=== PATIENT | male | born 1960 | race Caucasian/White ===

== ENCOUNTER → 2017-07-04 | Outpatient (REF) | payer BC | LOC: M LAB REF 12:35 | DX: R19.7 Diarrhea, unspecified (principal); K62.5 Hemorrhage of anus and rectum | CPT/HCPCS: 87507 ==

== ENCOUNTER 2017-07-06 13:08 | Day surgery (SDC) | payer BC ==
[2017-07-06] MEDS: NS 1,000 ML IV (13:15)
[2017-07-06] MEDS ORDERED: PROPOFOL 200 MG/20 ML VIAL As Ordered ×3 (14:21→14:39)
[2017-07-06] MEDS ORDERED: LIDOCAINE 2% INJ 100 MG/5 ML SDV (FOR ANES.) As Ordered (14:21)
[2017-07-06 15:52] LABS: HEMATOCRIT 38.5 % (42.0-52.0); MEAN CORPUSCULAR HEMOGLOBIN 29.8 pg (27.0-33.0); MEAN CORPUSCULAR HGB CONC 33.8 g/dl (32.0-36.5); MEAN CORPUSCULAR VOLUME 88.3 fl (80.0-96.0); PLATELET COUNT, AUTOMATED 328 10^3/uL (150-450); RED BLOOD COUNT 4.36 10^6/uL (4.30-6.10); RED CELL DISTRIBUTION WIDTH 12.4 % (11.5-14.5); WHITE BLOOD COUNT 4.4 10^3/uL (4.0-10.0)
== END 2017-07-06 15:38 | disposition home or self-care (01) ==
LOC: M OPP 13:08
DX: R19.7 Diarrhea, unspecified (principal); R19.4 Change in bowel habit; K62.5 Hemorrhage of anus and rectum; K51.518 Left sided colitis with other complication; K63.89 Other specified diseases of intestine; K62.89 Other specified diseases of anus and rectum; I10 Essential (primary) hypertension; E78.5 Hyperlipidemia, unspecified; Z86.73 Personal history of transient ischemic attack (TIA), and cerebral infarction without residual deficits; Z88.0 Allergy status to penicillin; Z79.82 Long term (current) use of aspirin; Z79.899 Other long term (current) drug therapy; Z80.8 Family history of malignant neoplasm of other organs or systems
CPT/HCPCS: 45380

== ENCOUNTER → 2017-08-01 | Outpatient (CLI) | payer BC ==
[2017-08-01 10:27] LABS: BASO % 0.3 % (0.0-1.0); EOS # 0.1 10^3/uL (0.0-0.50); HEMATOCRIT 36.9 % (42.0-52.0); HEMOGLOBIN 12.1 g/dl (14.0-18.0); IMMATURE GRANULOCYTE % 0.3 % (0-3.0); MEAN CORPUSCULAR HEMOGLOBIN 29.7 pg (27.0-33.0); MEAN CORPUSCULAR HGB CONC 32.8 g/dl (32.0-36.5); MEAN CORPUSCULAR VOLUME 90.7 fl (80.0-96.0); MONO # 0.7 10^3/uL (0.0-0.8); MONO % 8.8 % (0.0-5.0); NEUTROPHILS # 5.9 10^3/uL (1.8-7.7); NEUTROPHILS % 76.6 % (36.0-66.0); PLATELET COUNT, AUTOMATED 315 10^3/uL (150-450); RED BLOOD COUNT 4.07 10^6/uL (4.30-6.10); RED CELL DISTRIBUTION WIDTH 13.8 % (11.5-14.5); WHITE BLOOD COUNT 7.7 10^3/uL (4.0-10.0)
[2017-08-01 11:30] LABS: BANDS 4 % (< 11); EOSINOPHILS 2 % (0-5); LYMPHOCYTES 12 % (16-52); MONOCYTES 10 % (0-8); NEUTROPHILS 72 % (35-75); PLATELET ESTIMATE NORMAL (NORMAL)
== END ==
LOC: M LAB 09:47
DX: R19.7 Diarrhea, unspecified (principal); K62.5 Hemorrhage of anus and rectum; R10.9 Unspecified abdominal pain
CPT/HCPCS: 85025

== ENCOUNTER → 2017-09-06 | Outpatient (REF) | payer BC ==
[2017-09-06 17:50] LABS: VITAMIN B12 LEVEL 710 PG/ML (247-911)
[2017-09-09 00:06] LABS: Lyme Disease IgG/IgM Antibodie <0.91 ISR (0.00-0.90); Lyme Disease IgM Ab Quantitati <0.80 index (0.00-0.79)
== END ==
LOC: M LAB REF 16:39
DX: R53.83 Other fatigue (principal)
CPT/HCPCS: 82607

== ENCOUNTER 2017-09-27 18:59 | Emergency (ER) | payer BC ==
[2017-09-27] MEDS: AZITHROMYCIN 250 MG TAB PO (21:20)
[2017-09-27] MEDS: IPRATROPIUM 0.5MG/ALBUTEROL 2.5MG INH SOL UD 3ML (DUONEB)(J7620) NEB (21:20)
== END 2017-09-27 22:05 | disposition home or self-care (01) ==
LOC: M ED 18:59
DX: J18.1 Lobar pneumonia, unspecified organism (principal); I10 Essential (primary) hypertension; Z86.73 Personal history of transient ischemic attack (TIA), and cerebral infarction without residual deficits; Z79.82 Long term (current) use of aspirin; Z79.01 Long term (current) use of anticoagulants; Z88.0 Allergy status to penicillin; Z79.899 Other long term (current) drug therapy; Z87.442 Personal history of urinary calculi; Z87.19 Personal history of other diseases of the digestive system
CPT/HCPCS: 71046

== ENCOUNTER 2017-09-29 13:11 | Inpatient (IN) | payer BC ==
[2017-09-29] MEDS: ALBUTEROL SULFATE 2.5 MG/0.5 ML INH NEB SOLN NEB ×3 (13:56→17:54)
[2017-09-29] MEDS: methylPREDNISolone INJ 125 MG/2 ML VIAL (J2930) IV ×2 (14:25→22:14)
[2017-09-29] MEDS: NS 1,000 ML IV (14:25)
[2017-09-29 14:29] LABS: BASO % 0.4 % (0.0-1.0); EOS # 0.2 10^3/uL (0.0-0.50); EOS % 2.6 % (0.0-3.0); HEMATOCRIT 31.8 % (42.0-52.0); IMMATURE GRANULOCYTE % 0.3 % (0-3.0); LYMPH % 26.5 % (24.0-44.0); MEAN CORPUSCULAR HEMOGLOBIN 26.2 pg (27.0-33.0); MEAN CORPUSCULAR HGB CONC 31.4 g/dl (32.0-36.5); MEAN CORPUSCULAR VOLUME 83.2 fl (80.0-96.0); MONO % 13.6 % (0.0-5.0); NEUTROPHILS # 4.2 10^3/uL (1.8-7.7); NEUTROPHILS % 56.6 % (36.0-66.0); PLATELET COUNT, AUTOMATED 487 10^3/uL (150-450); RED BLOOD COUNT 3.82 10^6/uL (4.30-6.10); RED CELL DISTRIBUTION WIDTH 13.2 % (11.5-14.5); WHITE BLOOD COUNT 7.4 10^3/uL (4.0-10.0)
[2017-09-29 14:56] LABS: INR 1.02; PROTHROMBIN TIME 13.5 SECONDS (12.4-14.5)
[2017-09-29 14:57] LABS: LACTIC ACID SEPSIS PROTOCOL 1.5 MMOL/L (0.4-2.0)
[2017-09-29 14:57] LABS: ALBUMIN 2.7 GM/DL (3.2-5.2); ALBUMIN/GLOBULIN RATIO 0.49 (1.00-1.93); ALKALINE PHOSPHATASE 97 U/L (45-117); ALT/SGPT 17 U/L (12-78); ANION GAP 7 MEQ/L (8-16); AST/SGOT 13 U/L (7-37); BILIRUBIN,DIRECT 0.2 MG/DL (0.0-0.2); BILIRUBIN,TOTAL 0.6 MG/DL (0.2-1.0); BLOOD UREA NITROGEN 11 MG/DL (7-18); CALCIUM LEVEL 8.3 MG/DL (8.5-10.1); CARBON DIOXIDE LEVEL 25 MEQ/L (21-32); CHLORIDE LEVEL 105 MEQ/L (98-107); CPK CREATINE PHOSPHOKINASE 44 U/L (39-308); CREATININE FOR GFR 0.97 MG/DL (0.70-1.30); GLOMERULAR FILTRATION RATE > 60.0 (>56); GLUCOSE, FASTING 99 MG/DL (70-100); POTASSIUM SERUM 3.8 MEQ/L (3.5-5.1); SODIUM LEVEL 137 MEQ/L (136-145); THYROXINE (T4) 9.6 UG/DL (4.5-12.0); TOTAL PROTEIN 8.2 GM/DL (6.4-8.2); TROPONIN I < 0.02 NG/ML (< 0.10)
[2017-09-29 15:03] LABS: CK-MB VALUE MASS < 1.0 NG/ML (<3.6); MB/CK RELATIVE INDEX 2.27 (< OR =4); NT-PRO BNP 91 PG/ML (<125)
[2017-09-29] MEDS: LevoFLOXacin IV 750 MG in APPROPRIATE DILUENT 1 EA IV (15:10)
[2017-09-29 15:54] LABS: ABG BASE EXCESS -3.7 (-2.0-2.0); ABG HCO3 19.5 MEQ/L (22.0-26.0); ABG PARTIAL PRESSURE CO2 28.9 mmHg (35.0-45.0); ABG PARTIAL PRESSURE O2 63.9 mmHg (75.0-100.0); ABG STANDARD HCO3 21.3 MEQ/L (22.0-26.0); ABG TOTAL CO2 20.4 MEQ/L (22.0-29.0); ABG pH (ARTERIAL) 7.447 UNITS (7.350-7.450)
[2017-09-29] MEDS ORDERED: ISOVUE-370 76% 100ML VIAL (Q9967) As Ordered (17:43)
[2017-09-29] MEDS ORDERED: IPRATROPIUM 0.5MG/ALBUTEROL 2.5MG INH SOL UD 3ML (DUONEB)(J7620) NEB (17:45)
[2017-09-29] MEDS ORDERED: ONDANSETRON 4MG/2ML VIAL (J2405) IV (18:00)
[2017-09-29] MEDS ORDERED: ACETAMINOPHEN TAB 650MG DOSE (2X325MG) PO (18:00)
[2017-09-29] MEDS: IPRATROPIUM 0.5MG/ALBUTEROL 2.5MG INH SOL UD 3ML (DUONEB)(J7620) NEB (20:00)
[2017-09-29 20:14] LABS: CK-MB VALUE MASS < 1.0 NG/ML (<3.6); CPK CREATINE PHOSPHOKINASE 42 U/L (39-308); MB/CK RELATIVE INDEX 2.38 (< OR =4); TROPONIN I < 0.02 NG/ML (< 0.10)
[2017-09-29] MEDS: FUROSEMIDE 20 MG/2 ML VIAL (J1940) IV (20:56)
[2017-09-29] MEDS: ASPIRIN 81 MG ENTERIC TAB PO (20:56)
[2017-09-29] MEDS: GABAPENTIN 300 MG CAP PO (20:56)
[2017-09-29] MEDS: SENOKOT S TAB PO (20:57)
[2017-09-29] MEDS: ADVAIR HFA 230/21MCG INHALER INH (21:11)
[2017-09-29] MEDS: HEPARIN SOD (PORCINE) 5000 UNITS/ML VIAL SC (22:14)
[2017-09-29] MEDS: NS 500 ML IV (23:15)
[2017-09-30] MEDS: IPRATROPIUM 0.5MG/ALBUTEROL 2.5MG INH SOL UD 3ML (DUONEB)(J7620) NEB ×4 (02:55→20:00)
[2017-09-30] MEDS: methylPREDNISolone INJ 125 MG/2 ML VIAL (J2930) IV (05:26)
[2017-09-30 05:32] LABS: HEMATOCRIT 27.3 % (42.0-52.0); HEMOGLOBIN 8.6 g/dl (13.5-17.5); MEAN CORPUSCULAR HEMOGLOBIN 26.1 pg (27.0-33.0); MEAN CORPUSCULAR HGB CONC 31.5 g/dl (32.0-36.5); PLATELET COUNT, AUTOMATED 410 10^3/uL (150-450); RED BLOOD COUNT 3.29 10^6/uL (4.30-6.10); WHITE BLOOD COUNT 3.8 10^3/uL (4.0-10.0)
[2017-09-30 05:55] LABS: ANION GAP 4 MEQ/L (8-16); BLOOD UREA NITROGEN 12 MG/DL (7-18); CALCIUM LEVEL 7.9 MG/DL (8.5-10.1); CARBON DIOXIDE LEVEL 24 MEQ/L (21-32); CHLORIDE LEVEL 113 MEQ/L (98-107); CK-MB VALUE MASS < 1.0 NG/ML (<3.6); CPK CREATINE PHOSPHOKINASE 42 U/L (39-308); GLOMERULAR FILTRATION RATE > 60.0 (>56); GLUCOSE, FASTING 163 MG/DL (70-100); MAGNESIUM LEVEL 2.4 MG/DL (1.8-2.4); MB/CK RELATIVE INDEX 2.38 (< OR =4); POTASSIUM SERUM 4.4 MEQ/L (3.5-5.1); SODIUM LEVEL 141 MEQ/L (136-145); TROPONIN I < 0.02 NG/ML (< 0.10)
[2017-09-30] MEDS: ADVAIR HFA 230/21MCG INHALER INH ×2 (08:19→22:14)
[2017-09-30] MEDS: TIOTROPIUM INHALER/CAPSULE (SPIRIVA) INH (08:19)
[2017-09-30] MEDS: SENOKOT S TAB PO ×2 (09:00→21:00)
[2017-09-30] MEDS: ATORVASTATIN 20 MG TAB PO (09:11)
[2017-09-30] MEDS: amLODIPine 5 MG TAB PO (09:12)
[2017-09-30] MEDS: CLOPIDOGREL 75 MG TAB PO (09:12)
[2017-09-30] MEDS: ASPIRIN 81 MG ENTERIC TAB PO ×2 (09:12→22:30)
[2017-09-30] MEDS: FUROSEMIDE 20 MG/2 ML VIAL (J1940) IV ×2 (09:12→17:07)
[2017-09-30] MEDS: HEPARIN SOD (PORCINE) 5000 UNITS/ML VIAL SC ×2 (09:13→22:30)
[2017-09-30] MEDS: methylPREDNISolone INJ 40 MG/1 ML VIAL (J2920) IV ×2 (14:09→22:30)
[2017-09-30] MEDS: MOXIFLOXACIN HCL 400 MG in APPROPRIATE DILUENT 1 EA IV (17:07)
[2017-09-30] MEDS: GABAPENTIN 300 MG CAP PO (21:00)
[2017-10-01] MEDS: GABAPENTIN 300 MG CAP PO ×2 (00:31→20:19)
[2017-10-01] MEDS: IPRATROPIUM 0.5MG/ALBUTEROL 2.5MG INH SOL UD 3ML (DUONEB)(J7620) NEB ×4 (01:34→20:00)
[2017-10-01 06:02] LABS: HEMATOCRIT 28.4 % (42.0-52.0); MEAN CORPUSCULAR HGB CONC 31.7 g/dl (32.0-36.5); MEAN CORPUSCULAR VOLUME 82.1 fl (80.0-96.0); PLATELET COUNT, AUTOMATED 568 10^3/uL (150-450); RED BLOOD COUNT 3.46 10^6/uL (4.30-6.10); RED CELL DISTRIBUTION WIDTH 13.2 % (11.5-14.5); WHITE BLOOD COUNT 17.4 10^3/uL (4.0-10.0)
[2017-10-01] MEDS: methylPREDNISolone INJ 40 MG/1 ML VIAL (J2920) IV (06:09)
[2017-10-01 06:11] LABS: ANION GAP 8 MEQ/L (8-16); BLOOD UREA NITROGEN 19 MG/DL (7-18); C REACTIVE PROTEIN QUANTITATIV 7.89 MG/DL (0.00-0.30); CALCIUM LEVEL 8.4 MG/DL (8.5-10.1); CARBON DIOXIDE LEVEL 24 MEQ/L (21-32); CHLORIDE LEVEL 110 MEQ/L (98-107); CREATININE FOR GFR 0.96 MG/DL (0.70-1.30); GLOMERULAR FILTRATION RATE > 60.0 (>56); GLUCOSE, FASTING 151 MG/DL (70-100); MAGNESIUM LEVEL 2.4 MG/DL (1.8-2.4); POTASSIUM SERUM 3.9 MEQ/L (3.5-5.1); SODIUM LEVEL 142 MEQ/L (136-145)
[2017-10-01] MEDS: TIOTROPIUM INHALER/CAPSULE (SPIRIVA) INH (07:27)
[2017-10-01] MEDS: ADVAIR HFA 230/21MCG INHALER INH ×2 (07:27→20:15)
[2017-10-01] MEDS: SENOKOT S TAB PO ×2 (09:00→20:20)
[2017-10-01] MEDS: ASPIRIN 81 MG ENTERIC TAB PO ×2 (09:48→20:20)
[2017-10-01] MEDS: ATORVASTATIN 20 MG TAB PO (09:48)
[2017-10-01] MEDS: CLOPIDOGREL 75 MG TAB PO (09:48)
[2017-10-01] MEDS: amLODIPine 5 MG TAB PO (09:48)
[2017-10-01] MEDS: FUROSEMIDE 40 MG TAB PO (09:48)
[2017-10-01] MEDS: predniSONE 20 MG TAB PO (09:49)
[2017-10-01] MEDS: HEPARIN SOD (PORCINE) 5000 UNITS/ML VIAL SC ×2 (09:49→20:20)
[2017-10-01] MEDS: MOXIFLOXACIN HCL 400 MG in APPROPRIATE DILUENT 1 EA IV (17:30)
[2017-10-02] MEDS: IPRATROPIUM 0.5MG/ALBUTEROL 2.5MG INH SOL UD 3ML (DUONEB)(J7620) NEB ×2 (02:54→07:28)
[2017-10-02 06:41] LABS: HEMATOCRIT 26.4 % (42.0-52.0); HEMOGLOBIN 8.5 g/dl (13.5-17.5); MEAN CORPUSCULAR HEMOGLOBIN 26.5 pg (27.0-33.0); MEAN CORPUSCULAR HGB CONC 32.2 g/dl (32.0-36.5); MEAN CORPUSCULAR VOLUME 82.2 fl (80.0-96.0); PLATELET COUNT, AUTOMATED 488 10^3/uL (150-450); RED BLOOD COUNT 3.21 10^6/uL (4.30-6.10); RED CELL DISTRIBUTION WIDTH 13.5 % (11.5-14.5); WHITE BLOOD COUNT 10.9 10^3/uL (4.0-10.0)
[2017-10-02 07:01] LABS: ANION GAP 4 MEQ/L (8-16); BLOOD UREA NITROGEN 17 MG/DL (7-18); C REACTIVE PROTEIN QUANTITATIV 3.67 MG/DL (0.00-0.30); CALCIUM LEVEL 8.1 MG/DL (8.5-10.1); CARBON DIOXIDE LEVEL 28 MEQ/L (21-32); CHLORIDE LEVEL 112 MEQ/L (98-107); CREATININE FOR GFR 0.87 MG/DL (0.70-1.30); GLOMERULAR FILTRATION RATE > 60.0 (>56); GLUCOSE, FASTING 124 MG/DL (70-100); MAGNESIUM LEVEL 2.2 MG/DL (1.8-2.4); POTASSIUM SERUM 3.6 MEQ/L (3.5-5.1); SODIUM LEVEL 144 MEQ/L (136-145)
[2017-10-02] MEDS: ADVAIR HFA 230/21MCG INHALER INH (07:26)
[2017-10-02] MEDS: TIOTROPIUM INHALER/CAPSULE (SPIRIVA) INH (07:27)
[2017-10-02] MEDS: HEPARIN SOD (PORCINE) 5000 UNITS/ML VIAL SC (08:36)
[2017-10-02] MEDS: amLODIPine 5 MG TAB PO (08:37)
[2017-10-02] MEDS: SENOKOT S TAB PO (08:37)
[2017-10-02] MEDS: ATORVASTATIN 20 MG TAB PO (08:37)
[2017-10-02] MEDS: predniSONE 20 MG TAB PO (08:37)
[2017-10-02] MEDS: ASPIRIN 81 MG ENTERIC TAB PO (08:37)
[2017-10-02] MEDS: CLOPIDOGREL 75 MG TAB PO (08:37)
[2017-10-02] MEDS: MOXIFLOXACIN HCL 400 MG in APPROPRIATE DILUENT 1 EA IV (12:29)
== END 2017-10-02 14:35 | disposition home or self-care (01) | DRG 139 ==
LOC: M PCU 09-30 00:09 → M ED 13:11 → M ED INP 17:50 → M MS5PR 09-30 18:37
DX: J18.9 Pneumonia, unspecified organism (principal); J81.1 Chronic pulmonary edema; I27.20 Pulmonary hypertension, unspecified; J44.0 Chronic obstructive pulmonary disease with (acute) lower respiratory infection; J44.1 Chronic obstructive pulmonary disease with (acute) exacerbation; K51.90 Ulcerative colitis, unspecified, without complications; I10 Essential (primary) hypertension; D50.0 Iron deficiency anemia secondary to blood loss (chronic); J98.01 Acute bronchospasm; Z88.0 Allergy status to penicillin; Z86.73 Personal history of transient ischemic attack (TIA), and cerebral infarction without residual deficits; Z79.82 Long term (current) use of aspirin; Z79.02 Long term (current) use of antithrombotics/antiplatelets; Z79.899 Other long term (current) drug therapy

== ENCOUNTER → 2017-10-05 | Outpatient (REF) | payer BC ==
[2017-10-05 12:56] LABS: IRON (FE) 17 UG/DL (65-175); PERCENT SATURATION 5.7 % (19.7-50.0); TOTAL IRON BINDING CAPACITY 296 UG/DL (250-450)
[2017-10-05 13:01] LABS: FOLATE 11.9 NG/ML; VITAMIN B12 LEVEL 814 PG/ML
[2017-10-07 00:08] LABS: ALPHA 1 ANTITRYPSIN 167 mg/dL (90-200)
== END ==
LOC: M LAB REF 12:13
DX: D64.9 Anemia, unspecified (principal); J44.9 Chronic obstructive pulmonary disease, unspecified
CPT/HCPCS: 82746

== ENCOUNTER → 2017-10-21 | Outpatient (CLI) | payer BC | LOC: M RAD 16:14 | DX: M79.661 Pain in right lower leg (principal); M79.662 Pain in left lower leg; M79.89 Other specified soft tissue disorders | CPT/HCPCS: 93970 ==

== ENCOUNTER → 2017-11-03 | Outpatient (CLI) | payer BC | LOC: M CARPUL 16:56 | DX: R06.00 Dyspnea, unspecified (principal) | CPT/HCPCS: 94729 ==

== ENCOUNTER → 2017-12-01 | Outpatient (REF) | payer BC ==
[2017-12-01 14:29] LABS: C REACTIVE PROTEIN QUANTITATIV 0.54 MG/DL (0.00-0.30)
[2017-12-08 14:41] LABS: ANCA-ATYPICAL <1:20 titer (Neg:<1:20); ANTI-SACCHAROMYCES CEREV. IgA <20.0 Units (0.0-24.9); ANTI-SACCHAROMYCES CEREV. IgG 26.4 Units (0.0-24.9); CYTOPLASMIC NEUTROP AB ANCA-C <1:20 titer (Neg:<1:20); PERINUCLEAR AB ANCA-P <1:20 titer (Neg:<1:20)
== END ==
LOC: M LAB REF 13:21
DX: R10.84 Generalized abdominal pain (principal); R19.7 Diarrhea, unspecified
CPT/HCPCS: 86256

== ENCOUNTER → 2017-12-06 | Outpatient (REF) | payer BC ==
[2017-12-15 00:09] LABS: CALPROTECTIN STOOL 1985 ug/g (0-120)
== END ==
LOC: M LAB REF 09:41
DX: K51.50 Left sided colitis without complications (principal); R19.7 Diarrhea, unspecified; R10.84 Generalized abdominal pain
CPT/HCPCS: 83993

== ENCOUNTER → 2017-12-23 | Outpatient (REF) | payer BC ==
[2017-12-23 13:50] LABS: RETIC HEMOGLOBIN EQUIVALENT 32.3 pg (24-36); RETICULOCYTE % 3.4 % (0.5-1.5)
[2017-12-23 14:11] LABS: IRON (FE) 16 UG/DL (65-175); PERCENT SATURATION 5.6 % (19.7-50.0); TOTAL IRON BINDING CAPACITY 285 UG/DL (250-450)
== END ==
LOC: M LAB REF 13:26
DX: D64.9 Anemia, unspecified (principal)
CPT/HCPCS: 83550

== ENCOUNTER → 2018-01-10 | Outpatient (CLI) | payer BC | LOC: M RAD 11:48 | DX: R10.84 Generalized abdominal pain (principal) | CPT/HCPCS: 74018 ==

== ENCOUNTER → 2018-01-10 | Outpatient (REF) | payer BC ==
[2018-01-10 17:12] LABS: LACTIC ACID SEPSIS PROTOCOL 1.3 MMOL/L (0.4-2.0)
[2018-01-16 08:36] LABS: ANSER ADA #3170 SEE SEPARATE REPORT
== END ==
LOC: M LAB REF 16:50
DX: K51.50 Left sided colitis without complications (principal)
CPT/HCPCS: 84999

== ENCOUNTER 2018-01-14 12:15 | Inpatient (IN) | payer BC ==
[2018-01-14] MEDS: ONDANSETRON 4MG/2ML VIAL (J2405) IV (12:47)
[2018-01-14] MEDS: NS 1,000 ML IV ×2 (12:47→21:58)
[2018-01-14] MEDS: MORPHINE 4 MG/ML 1ML VIAL/SYRINGE (J2270) IV (12:47)
[2018-01-14] MEDS: methylPREDNISolone INJ 125 MG/2 ML VIAL (J2930) IV ×2 (12:47→21:57)
[2018-01-14 12:52] LABS: HEMATOCRIT 32.1 % (42.0-52.0); HEMOGLOBIN 9.9 g/dl (13.5-17.5); MEAN CORPUSCULAR HEMOGLOBIN 26.3 pg (27.0-33.0); MEAN CORPUSCULAR HGB CONC 30.8 g/dl (32.0-36.5); MEAN CORPUSCULAR VOLUME 85.4 fl (80.0-96.0); PLATELET COUNT, AUTOMATED 537 10^3/uL (150-450); RED BLOOD COUNT 3.76 10^6/uL (4.30-6.10); WHITE BLOOD COUNT 7.3 10^3/uL (4.0-10.0)
[2018-01-14] MEDS: GASTROGRAFIN SOLUTION 30ML PO ×2 (12:54→12:55)
[2018-01-14 12:58] LABS: POSITIVE MORPH POS FLAG
[2018-01-14 12:59] LABS: ADD MANUAL DIFFER YES; DIFF SLIDE NUMBER 127
[2018-01-14 13:04] LABS: INR 1.02; PROTHROMBIN TIME 13.6 SECONDS (12.1-14.4)
[2018-01-14 13:14] LABS: ERYTHROCYTE SEDIMENTATION RATE 67 mm/hr (0-20)
[2018-01-14 13:15] LABS: LACTIC ACID SEPSIS PROTOCOL 1.2 MMOL/L (0.4-2.0)
[2018-01-14 13:20] LABS: ALBUMIN 2.1 GM/DL (3.2-5.2); ALBUMIN/GLOBULIN RATIO 0.51 (1.00-1.93); ALKALINE PHOSPHATASE 73 U/L (45-117); ALT/SGPT 14 U/L (12-78); ANION GAP 15 MEQ/L (8-16); AST/SGOT 8 U/L (7-37); BILIRUBIN,DIRECT < 0.1 MG/DL (0.0-0.2); BILIRUBIN,TOTAL 0.3 MG/DL (0.2-1.0); BLOOD UREA NITROGEN 19 MG/DL (7-18); CALCIUM LEVEL 8.2 MG/DL (8.5-10.1); CARBON DIOXIDE LEVEL 18 MEQ/L (21-32); CHLORIDE LEVEL 104 MEQ/L (98-107); CREATININE FOR GFR 1.05 MG/DL (0.70-1.30); GLOMERULAR FILTRATION RATE > 60.0 (>56); GLUCOSE, FASTING 72 MG/DL (70-100); LIPASE 70 U/L (73-393); POTASSIUM SERUM 4.2 MEQ/L (3.5-5.1); SODIUM LEVEL 137 MEQ/L (136-145); TOTAL PROTEIN 6.2 GM/DL (6.4-8.2)
[2018-01-14 13:36] LABS: BANDS 7 % (< 11); EOSINOPHILS 1 % (0-5); LYMPHOCYTES 24 % (16-52); MONOCYTES 4 % (0-8); NEUTROPHILS 64 % (35-75)
[2018-01-14 13:37] LABS: ANISOCYTOSIS 1+; PLATELET ESTIMATE INCREASED (NORMAL)
[2018-01-14] MEDS ORDERED: ISOVUE-370 76% 100ML VIAL (Q9967) As Ordered (14:18)
[2018-01-14] MEDS ORDERED: ONDANSETRON 4MG/2ML VIAL (J2405) IV (16:30)
[2018-01-14] MEDS ORDERED: ONDANSETRON 4 MG TAB (S0181) PO (16:30)
[2018-01-14] MEDS ORDERED: MORPHINE 4 MG/ML 1ML VIAL/SYRINGE (J2270) IV (16:30)
[2018-01-14] MEDS ORDERED: DICYCLOMINE 10 MG CAP PO (16:30)
[2018-01-14] MEDS ORDERED: ACETAMINOPHEN TAB 650MG DOSE (2X325MG) PO (16:30)
[2018-01-14] MEDS: ACETAMINOPHEN TAB 650MG DOSE (2X325MG) PO (17:30)
[2018-01-14] MEDS: diphenhydrAMINE 25 MG CAP PO (17:30)
[2018-01-14] MEDS: sulfaSALAzine 500 MG TABEC PO (18:00)
[2018-01-14 18:03] LABS: IMMEDIATE SPIN CROSSMATCH 1 2
[2018-01-14] MEDS: GABAPENTIN 300 MG CAP PO (21:57)
[2018-01-14] MEDS: ATORVASTATIN 20 MG TAB PO (21:57)
[2018-01-14] MEDS: PERCOCET 5MG/325MG TAB PO (22:10)
[2018-01-15] MEDS: methylPREDNISolone INJ 125 MG/2 ML VIAL (J2930) IV ×4 (02:12→20:04)
[2018-01-15] MEDS: NS 1,000 ML IV (03:30)
[2018-01-15 06:27] LABS: BASO % 0.3 % (0.0-1.0); HEMATOCRIT 29.1 % (42.0-52.0); HEMOGLOBIN 9.3 g/dl (13.5-17.5); IMMATURE GRANULOCYTE % 0.5 % (0-3.0); LYMPH # 0.7 10^3/uL (1.5-4.5); LYMPH % 16.4 % (24.0-44.0); MEAN CORPUSCULAR HEMOGLOBIN 27.3 pg (27.0-33.0); MEAN CORPUSCULAR VOLUME 85.3 fl (80.0-96.0); MONO # 0.2 10^3/uL (0.0-0.8); NEUTROPHILS # 3.1 10^3/uL (1.8-7.7); NEUTROPHILS % 78.8 % (36.0-66.0); PLATELET COUNT, AUTOMATED 507 10^3/uL (150-450); RED BLOOD COUNT 3.41 10^6/uL (4.30-6.10); RED CELL DISTRIBUTION WIDTH 15.8 % (11.5-14.5)
[2018-01-15 07:02] LABS: ANION GAP 13 MEQ/L (8-16); BLOOD UREA NITROGEN 17 MG/DL (7-18); CALCIUM LEVEL 7.8 MG/DL (8.5-10.1); CARBON DIOXIDE LEVEL 18 MEQ/L (21-32); CHLORIDE LEVEL 108 MEQ/L (98-107); CREATININE FOR GFR 0.83 MG/DL (0.70-1.30); GLOMERULAR FILTRATION RATE > 60.0 (>56); GLUCOSE, FASTING 127 MG/DL (70-100); POTASSIUM SERUM 4.9 MEQ/L (3.5-5.1); SODIUM LEVEL 139 MEQ/L (136-145)
[2018-01-15] MEDS: sulfaSALAzine 500 MG TABEC PO ×4 (08:00→18:00)
[2018-01-15 12:25] LABS: IMMEDIATE SPIN CROSSMATCH 1 1
[2018-01-15] MEDS: GABAPENTIN 300 MG CAP PO (20:33)
[2018-01-15] MEDS: ATORVASTATIN 20 MG TAB PO (20:33)
[2018-01-15] MEDS: PERCOCET 5MG/325MG TAB PO (20:33)
[2018-01-16] MEDS: methylPREDNISolone INJ 125 MG/2 ML VIAL (J2930) IV ×3 (00:40→12:04)
[2018-01-16] MEDS: PERCOCET 5MG/325MG TAB PO (03:07)
[2018-01-16 06:39] LABS: BASO % 0.1 % (0.0-1.0); HEMOGLOBIN 9.3 g/dl (13.5-17.5); IMMATURE GRANULOCYTE % 0.5 % (0-3.0); LYMPH # 0.7 10^3/uL (1.5-4.5); LYMPH % 5.6 % (24.0-44.0); MEAN CORPUSCULAR HEMOGLOBIN 27.3 pg (27.0-33.0); MEAN CORPUSCULAR HGB CONC 33.2 g/dl (32.0-36.5); MEAN CORPUSCULAR VOLUME 82.1 fl (80.0-96.0); MONO # 0.6 10^3/uL (0.0-0.8); MONO % 5.3 % (0.0-5.0); NEUTROPHILS # 10.4 10^3/uL (1.8-7.7); NEUTROPHILS % 88.5 % (36.0-66.0); PLATELET COUNT, AUTOMATED 491 10^3/uL (150-450); RED BLOOD COUNT 3.41 10^6/uL (4.30-6.10); RED CELL DISTRIBUTION WIDTH 15.7 % (11.5-14.5); WHITE BLOOD COUNT 11.8 10^3/uL (4.0-10.0)
[2018-01-16 07:06] LABS: ANION GAP 7 MEQ/L (8-16); BLOOD UREA NITROGEN 16 MG/DL (7-18); C REACTIVE PROTEIN QUANTITATIV 9.11 MG/DL (0.00-0.30); CALCIUM LEVEL 7.9 MG/DL (8.5-10.1); CARBON DIOXIDE LEVEL 24 MEQ/L (21-32); CHLORIDE LEVEL 109 MEQ/L (98-107); CREATININE FOR GFR 0.76 MG/DL (0.70-1.30); GLOMERULAR FILTRATION RATE > 60.0 (>56); GLUCOSE, FASTING 172 MG/DL (70-100); POTASSIUM SERUM 4.5 MEQ/L (3.5-5.1); SODIUM LEVEL 140 MEQ/L (136-145)
[2018-01-16] MEDS: sulfaSALAzine 500 MG TABEC PO ×2 (08:00→11:20)
== END 2018-01-16 13:05 | disposition home or self-care (01) | DRG 245 ==
LOC: M ED 12:15 → M ED INP 16:21 → M MS5PR 20:55
PROC: 30233N1 Transfusion of Nonautologous Red Blood Cells into Peripheral Vein, Percutaneous Approach (ICD-10-PCS; principal; 2018-01-14)
DX: K51.90 Ulcerative colitis, unspecified, without complications (principal); A04.1 Enterotoxigenic Escherichia coli infection; D64.9 Anemia, unspecified; Z86.73 Personal history of transient ischemic attack (TIA), and cerebral infarction without residual deficits; Z88.0 Allergy status to penicillin; Z79.82 Long term (current) use of aspirin; Z79.899 Other long term (current) drug therapy

== ENCOUNTER 2018-01-17 20:51 | Emergency (ER) | payer BC ==
[2018-01-17 21:27] LABS: BASO % 0.1 % (0.0-1.0); HEMATOCRIT 39.5 % (42.0-52.0); IMMATURE GRANULOCYTE % 0.5 % (0-3.0); LYMPH # 2.8 10^3/uL (1.5-4.5); LYMPH % 22.1 % (24.0-44.0); MEAN CORPUSCULAR HEMOGLOBIN 27.2 pg (27.0-33.0); MEAN CORPUSCULAR HGB CONC 32.7 g/dl (32.0-36.5); MEAN CORPUSCULAR VOLUME 83.3 fl (80.0-96.0); MONO # 0.9 10^3/uL (0.0-0.8); MONO % 6.7 % (0.0-5.0); NEUTROPHILS % 70.6 % (36.0-66.0); PLATELET COUNT, AUTOMATED 688 10^3/uL (150-450); RED BLOOD COUNT 4.74 10^6/uL (4.30-6.10); WHITE BLOOD COUNT 12.8 10^3/uL (4.0-10.0)
[2018-01-17 21:35] LABS: HEMOGLOBIN 12.9 g/dl (13.5-17.5)
[2018-01-17 21:48] LABS: ALBUMIN 2.8 GM/DL (3.2-5.2); ALBUMIN/GLOBULIN RATIO 0.62 (1.00-1.93); ALKALINE PHOSPHATASE 87 U/L (45-117); ALT/SGPT 18 U/L (12-78); ANION GAP 18 MEQ/L (8-16); AST/SGOT 12 U/L (7-37); BILIRUBIN,DIRECT 0.1 MG/DL (0.0-0.2); BILIRUBIN,TOTAL 0.4 MG/DL (0.2-1.0); BLOOD UREA NITROGEN 18 MG/DL (7-18); CALCIUM LEVEL 9.5 MG/DL (8.5-10.1); CARBON DIOXIDE LEVEL 20 MEQ/L (21-32); CHLORIDE LEVEL 103 MEQ/L (98-107); CREATININE FOR GFR 1.22 MG/DL (0.70-1.30); GLUCOSE, FASTING 107 MG/DL (70-100); LIPASE 280 U/L (73-393); POTASSIUM SERUM 3.7 MEQ/L (3.5-5.1); SODIUM LEVEL 141 MEQ/L (136-145); TOTAL PROTEIN 7.3 GM/DL (6.4-8.2)
[2018-01-17 21:49] LABS: GLOMERULAR FILTRATION RATE > 60.0 (>56)
[2018-01-17] MEDS: NS 1,000 ML IV (22:01)
[2018-01-17] MEDS ORDERED: ISOVUE-370 76% 100ML VIAL (Q9967) As Ordered (22:11)
[2018-01-17] MEDS: MORPHINE 4 MG/ML 1ML VIAL/SYRINGE (J2270) IV (23:49)
== END 2018-01-18 01:24 | disposition home or self-care (01) ==
LOC: M ED 20:51
DX: R10.9 Unspecified abdominal pain (principal); Z86.73 Personal history of transient ischemic attack (TIA), and cerebral infarction without residual deficits; R11.0 Nausea; R19.7 Diarrhea, unspecified; K51.90 Ulcerative colitis, unspecified, without complications; Z79.899 Other long term (current) drug therapy; Z79.82 Long term (current) use of aspirin; Z88.0 Allergy status to penicillin
CPT/HCPCS: J2270

== ENCOUNTER 2018-01-18 14:51 | Inpatient (IN) | payer BC ==
[2018-01-18] MEDS: NS 1,000 ML IV (16:00)
[2018-01-18] MEDS: CIPROFLOXACIN 400 MG in APPROPRIATE DILUENT 1 EA IV (16:00)
[2018-01-18 16:07] LABS: BASO % 0.1 % (0.0-1.0); HEMATOCRIT 36.9 % (42.0-52.0); HEMOGLOBIN 11.9 g/dl (13.5-17.5); IMMATURE GRANULOCYTE % 0.5 % (0-3.0); LYMPH # 1.2 10^3/uL (1.5-4.5); LYMPH % 14.3 % (24.0-44.0); MEAN CORPUSCULAR HGB CONC 32.2 g/dl (32.0-36.5); MEAN CORPUSCULAR VOLUME 83.7 fl (80.0-96.0); MONO # 0.8 10^3/uL (0.0-0.8); MONO % 9.1 % (0.0-5.0); NEUTROPHILS # 6.4 10^3/uL (1.8-7.7); RED BLOOD COUNT 4.41 10^6/uL (4.30-6.10); RED CELL DISTRIBUTION WIDTH 16.5 % (11.5-14.5); WHITE BLOOD COUNT 8.5 10^3/uL (4.0-10.0)
[2018-01-18] MEDS: MORPHINE 4 MG/ML 1ML VIAL/SYRINGE (J2270) IV (16:14)
[2018-01-18] MEDS: methylPREDNISolone INJ 125 MG/2 ML VIAL (J2930) IV (16:14)
[2018-01-18] MEDS: ONDANSETRON 4MG/2ML VIAL (J2405) IV (16:14)
[2018-01-18 16:15] LABS: PLATELET COUNT, AUTOMATED 546 10^3/uL (150-450)
[2018-01-18] MEDS: metroNIDAZOLE 500 MG in APPROPRIATE DILUENT 1 EA IV (16:15)
[2018-01-18 16:30] LABS: ALBUMIN 2.4 GM/DL (3.2-5.2); ALKALINE PHOSPHATASE 75 U/L (45-117); ALT/SGPT 17 U/L (12-78); ANION GAP 8 MEQ/L (8-16); AST/SGOT 14 U/L (7-37); BILIRUBIN,DIRECT 0.1 MG/DL (0.0-0.2); BILIRUBIN,TOTAL 0.4 MG/DL (0.2-1.0); BLOOD UREA NITROGEN 15 MG/DL (7-18); CALCIUM LEVEL 8.3 MG/DL (8.5-10.1); CARBON DIOXIDE LEVEL 29 MEQ/L (21-32); CHLORIDE LEVEL 103 MEQ/L (98-107); CREATININE FOR GFR 0.92 MG/DL (0.70-1.30); GLOMERULAR FILTRATION RATE > 60.0 (>56); GLUCOSE, FASTING 96 MG/DL (70-100); LIPASE 121 U/L (73-393); POTASSIUM SERUM 3.6 MEQ/L (3.5-5.1); SODIUM LEVEL 140 MEQ/L (136-145); TOTAL PROTEIN 7.2 GM/DL (6.4-8.2)
[2018-01-18 16:31] LABS: LACTIC ACID SEPSIS PROTOCOL 1.4 MMOL/L (0.4-2.0)
[2018-01-18] MEDS: PANTOPRAZOLE 40MG INJ (PROTONIX) (C9113) IV (20:51)
[2018-01-19] MEDS: metroNIDAZOLE 500 MG in APPROPRIATE DILUENT 1 EA IV ×3 (00:53→17:35)
[2018-01-19] MEDS: methylPREDNISolone INJ 40 MG/1 ML VIAL (J2920) IV ×3 (00:54→15:51)
[2018-01-19] MEDS: CIPROFLOXACIN 400 MG in APPROPRIATE DILUENT 1 EA IV ×2 (03:28→15:51)
[2018-01-19 08:56] LABS: BASO % 0.2 % (0.0-1.0); HEMATOCRIT 30.9 % (42.0-52.0); IMMATURE GRANULOCYTE % 0.2 % (0-3.0); LYMPH # 0.5 10^3/uL (1.5-4.5); LYMPH % 12.6 % (24.0-44.0); MEAN CORPUSCULAR HEMOGLOBIN 27.2 pg (27.0-33.0); MEAN CORPUSCULAR HGB CONC 31.7 g/dl (32.0-36.5); MEAN CORPUSCULAR VOLUME 85.8 fl (80.0-96.0); MONO # 0.3 10^3/uL (0.0-0.8); MONO % 6.7 % (0.0-5.0); NEUTROPHILS # 3.2 10^3/uL (1.8-7.7); NEUTROPHILS % 80.3 % (36.0-66.0); RED CELL DISTRIBUTION WIDTH 16.4 % (11.5-14.5)
[2018-01-19 08:58] LABS: HEMOGLOBIN 9.8 g/dl (13.5-17.5)
[2018-01-19 08:59] LABS: PLATELET COUNT, AUTOMATED 428 10^3/uL (150-450)
[2018-01-19 09:11] LABS: ANION GAP 10 MEQ/L (8-16); BLOOD UREA NITROGEN 15 MG/DL (7-18); CALCIUM LEVEL 8.3 MG/DL (8.5-10.1); CARBON DIOXIDE LEVEL 28 MEQ/L (21-32); CHLORIDE LEVEL 103 MEQ/L (98-107); CREATININE FOR GFR 0.77 MG/DL (0.70-1.30); GLOMERULAR FILTRATION RATE > 60.0 (>56); GLUCOSE, FASTING 141 MG/DL (70-100); POTASSIUM SERUM 4.2 MEQ/L (3.5-5.1); SODIUM LEVEL 141 MEQ/L (136-145)
[2018-01-19] MEDS: PANTOPRAZOLE 40MG INJ (PROTONIX) (C9113) IV (19:59)
[2018-01-20] MEDS: methylPREDNISolone INJ 40 MG/1 ML VIAL (J2920) IV ×2 (01:12→08:36)
[2018-01-20] MEDS: metroNIDAZOLE 500 MG in APPROPRIATE DILUENT 1 EA IV ×2 (01:12→08:36)
[2018-01-20] MEDS: MORPHINE 4 MG/ML 1ML VIAL/SYRINGE (J2270) IV (01:42)
[2018-01-20] MEDS: CIPROFLOXACIN 400 MG in APPROPRIATE DILUENT 1 EA IV (04:05)
[2018-01-20 06:27] LABS: BASO % 0.1 % (0.0-1.0); HEMOGLOBIN 8.9 g/dl (13.5-17.5); IMMATURE GRANULOCYTE % 0.3 % (0-3.0); LYMPH # 0.7 10^3/uL (1.5-4.5); LYMPH % 7.6 % (24.0-44.0); MEAN CORPUSCULAR HEMOGLOBIN 27.3 pg (27.0-33.0); MEAN CORPUSCULAR VOLUME 82.8 fl (80.0-96.0); MONO # 0.4 10^3/uL (0.0-0.8); MONO % 4.4 % (0.0-5.0); NEUTROPHILS # 7.7 10^3/uL (1.8-7.7); NEUTROPHILS % 87.6 % (36.0-66.0); PLATELET COUNT, AUTOMATED 387 10^3/uL (150-450); RED BLOOD COUNT 3.26 10^6/uL (4.30-6.10); RED CELL DISTRIBUTION WIDTH 16.3 % (11.5-14.5); WHITE BLOOD COUNT 8.8 10^3/uL (4.0-10.0)
[2018-01-20 06:40] LABS: ANION GAP 8 MEQ/L (8-16); BLOOD UREA NITROGEN 17 MG/DL (7-18); CARBON DIOXIDE LEVEL 28 MEQ/L (21-32); CHLORIDE LEVEL 106 MEQ/L (98-107); CREATININE FOR GFR 0.78 MG/DL (0.70-1.30); GLOMERULAR FILTRATION RATE > 60.0 (>56); GLUCOSE, FASTING 156 MG/DL (70-100); POTASSIUM SERUM 4.2 MEQ/L (3.5-5.1); SODIUM LEVEL 142 MEQ/L (136-145)
== END 2018-01-20 11:24 | disposition home or self-care (01) | DRG 248 ==
LOC: M ED 14:51 → M ED INP 18:04 → M MS5PR 19:59
DX: A04.1 Enterotoxigenic Escherichia coli infection (principal); I27.20 Pulmonary hypertension, unspecified; K51.90 Ulcerative colitis, unspecified, without complications; I10 Essential (primary) hypertension; E78.5 Hyperlipidemia, unspecified; D64.9 Anemia, unspecified; R60.0 Localized edema; B96.20 Unspecified Escherichia coli [E. coli] as the cause of diseases classified elsewhere; Z86.73 Personal history of transient ischemic attack (TIA), and cerebral infarction without residual deficits; Z79.899 Other long term (current) drug therapy

== ENCOUNTER 2018-01-28 21:27 | Emergency (ER) | payer BC ==
[2018-01-28] MEDS: NS 1,000 ML IV ×2 (22:00→22:30)
[2018-01-28] MEDS: HYDROCORTISONE 100 MG/2 ML VIAL (J1720) IV (22:00)
[2018-01-28 22:22] LABS: HEMATOCRIT 17.4 % (42.0-52.0); MEAN CORPUSCULAR HEMOGLOBIN 26.8 pg (27.0-33.0); MEAN CORPUSCULAR HGB CONC 31.6 g/dl (32.0-36.5); MEAN CORPUSCULAR VOLUME 84.9 fl (80.0-96.0); PLATELET COUNT, AUTOMATED 514 10^3/uL (150-450); RED BLOOD COUNT 2.05 10^6/uL (4.30-6.10); RED CELL DISTRIBUTION WIDTH 16.9 % (11.5-14.5); WHITE BLOOD COUNT 10.2 10^3/uL (4.0-10.0)
[2018-01-28 22:28] LABS: ADD MANUAL DIFFER YES; DIFF SLIDE NUMBER 176; HEMOGLOBIN 5.5 g/dl (13.5-17.5); POSITIVE MORPH POS FLAG
[2018-01-28 22:42] LABS: INR 1.07; PROTHROMBIN TIME 14.1 SECONDS (12.1-14.4)
[2018-01-28 22:43] LABS: PARTIAL THROMBOPLASTIN TIME 24.5 SECONDS (25.4-37.6)
[2018-01-28 22:46] LABS: ATYPICAL LYMPH 3 % (0-5); LYMPHOCYTES 39 % (16-52); NEUTROPHILS 58 % (35-75)
[2018-01-28 22:47] LABS: PLATELET ESTIMATE INCREASED (NORMAL)
[2018-01-28 22:48] LABS: ANISOCYTOSIS 1+; POIKILOCYTOSIS 1+; TOXIC GRANULATION 1+
[2018-01-28 22:49] LABS: ALBUMIN 1.7 GM/DL (3.2-5.2); ALBUMIN/GLOBULIN RATIO 0.65 (1.00-1.93); ALKALINE PHOSPHATASE 38 U/L (45-117); ALT/SGPT 13 U/L (12-78); ANION GAP 12 MEQ/L (8-16); AST/SGOT 6 U/L (7-37); BILIRUBIN,DIRECT 0.1 MG/DL (0.0-0.2); BILIRUBIN,TOTAL 0.3 MG/DL (0.2-1.0); BLOOD UREA NITROGEN 46 MG/DL (7-18); CALCIUM LEVEL 7.6 MG/DL (8.5-10.1); CARBON DIOXIDE LEVEL 20 MEQ/L (21-32); CHLORIDE LEVEL 108 MEQ/L (98-107); CPK CREATINE PHOSPHOKINASE 13 U/L (39-308); CREATININE FOR GFR 1.02 MG/DL (0.70-1.30); GLOMERULAR FILTRATION RATE > 60.0 (>56); GLUCOSE, FASTING 116 MG/DL (70-100); LIPASE 157 U/L (73-393); POTASSIUM SERUM 4.7 MEQ/L (3.5-5.1); SODIUM LEVEL 140 MEQ/L (136-145); TOTAL PROTEIN 4.3 GM/DL (6.4-8.2); TROPONIN I 0.04 NG/ML (< 0.10)
[2018-01-28 22:51] LABS: LACTIC ACID SEPSIS PROTOCOL 4.8 MMOL/L (0.4-2.0)
[2018-01-28 22:55] LABS: CK-MB VALUE MASS < 1.0 NG/ML (<3.6); FREE T4 0.97 NG/DL (0.76-1.46); MB/CK RELATIVE INDEX 7.69 (< OR =4)
[2018-01-28 22:56] LABS: ETHYL ALCOHOL (ETHANOL) < 0.003 % (0.000-0.010)
[2018-01-28] MEDS ORDERED: VANCOMYCIN HCL 1,000 MG, VIAL MATE ADAPTER 1 EACH in D5W 250 ML IV (23:45)
[2018-01-29] MEDS: ACETAMINOPHEN TAB 650MG DOSE (2X325MG) PO (00:34)
[2018-01-29] MEDS: metroNIDAZOLE 500 MG in APPROPRIATE DILUENT 1 EA IV (00:35)
[2018-01-29 00:43] LABS: KETONE, URINE AUTO RFX TRACE mg/dL (NEGATIVE); MUCUS, URINE RFX SMALL (NEGATIVE); NITRITE, URINE AUTO RFX NEGATIVE (NEGATIVE); RBC, URINE AUTO RFX 0 /HPF (0-3); SPECIFIC GRAVITY UR AUTO RFX 1.018 (1.002-1.035); SQUAM EPITHELIAL CELL UR AURFX 0 /HPF (0-6); WBC, URINE AUTO RFX 0 /HPF (0-3)
[2018-01-29 00:45] LABS: LEUKOCYTE ESTERASE UR AUTO RFX TRACE (NEGATIVE)
[2018-01-29] MEDS: CIPROFLOXACIN 400 MG in APPROPRIATE DILUENT 1 EA IV (01:29)
[2018-01-29 01:48] LABS: IMMEDIATE SPIN CROSSMATCH 1 4
== END 2018-01-29 02:31 | disposition other institution (70) ==
LOC: M ED 21:27
DX: K92.2 Gastrointestinal hemorrhage, unspecified (principal); D62 Acute posthemorrhagic anemia; A41.9 Sepsis, unspecified organism; R65.20 Severe sepsis without septic shock; R57.8 Other shock; I10 Essential (primary) hypertension; E78.5 Hyperlipidemia, unspecified; Z86.73 Personal history of transient ischemic attack (TIA), and cerebral infarction without residual deficits; Z88.0 Allergy status to penicillin; Z79.82 Long term (current) use of aspirin; Z79.899 Other long term (current) drug therapy; Z79.2 Long term (current) use of antibiotics; Z79.52 Long term (current) use of systemic steroids; Z86.79 Personal history of other diseases of the circulatory system
CPT/HCPCS: J1720

== ENCOUNTER → 2018-02-09 | Outpatient (REF) | payer BC ==
[2018-02-09 18:59] LABS: IRON (FE) 38 UG/DL (65-175); TOTAL IRON BINDING CAPACITY 190 UG/DL (250-450)
== END ==
LOC: M LAB REF 18:26
DX: D50.0 Iron deficiency anemia secondary to blood loss (chronic) (principal)
CPT/HCPCS: 83550

== ENCOUNTER → 2018-02-27 | Outpatient (REF) | payer BC ==
[2018-02-27 13:05] LABS: INR 3.72; PROTHROMBIN TIME 37.7 SECONDS (12.1-14.4)
== END ==
LOC: M LAB REF 12:21
DX: I50.32 Chronic diastolic (congestive) heart failure (principal); Z51.81 Encounter for therapeutic drug level monitoring
CPT/HCPCS: 85610

== ENCOUNTER → 2018-08-03 | Outpatient (CLI) | payer BC ==
[~2018-08-03] MED LIST: ADVA230A INH; AMLO5TAB6 PO; ANUC25SU PR; ASPI81TA85 PO; ATOR1TAB21 PO; AVEL1TAB3 PO; AZIT-10 PO; AZIT-12 PO; CIPR1TAB20 PO; CLOP75TA2 PO; CLOT10TR PO; DICY20TA11 PO; DOXY100C; FLAG500T PO; FURO40TA2 PO; GABA-843 PO; HUMI40KI2 INJ; IPRA0.00 INH; IRON325T7 PO; METR-201 PO; OXYC1TAB23 PO; PRED10TA2 PO; PRED20TA PO; SPIR-10 PO; SULF500T2 PO; TIOT18INH INH
[2018-08-03 17:59] LABS: BASO % 0.2 % (0.0-1.0); EOS % 0.3 % (0.0-3.0); HEMATOCRIT 41.7 % (42.0-52.0); HEMOGLOBIN 14.3 g/dl (13.5-17.5); LYMPH # 0.9 10^3/uL (1.5-4.5); LYMPH % 9.1 % (24.0-44.0); MEAN CORPUSCULAR HEMOGLOBIN 29.1 pg (27.0-33.0); MEAN CORPUSCULAR HGB CONC 34.3 g/dl (32.0-36.5); MEAN CORPUSCULAR VOLUME 84.9 fl (80.0-96.0); MONO # 0.7 10^3/uL (0.0-0.8); MONO % 7.1 % (0.0-5.0); NEUTROPHILS # 8.2 10^3/uL (1.8-7.7); NEUTROPHILS % 82.9 % (36.0-66.0); PLATELET COUNT, AUTOMATED 386 10^3/uL (150-450); RED BLOOD COUNT 4.91 10^6/uL (4.30-6.10); WHITE BLOOD COUNT 9.9 10^3/uL (4.0-10.0)
[2018-08-03 18:03] LABS: ALBUMIN 4.1 GM/DL (3.2-5.2); BILIRUBIN,TOTAL 0.6 MG/DL (0.2-1.0); CALCIUM LEVEL 9.1 MG/DL (8.5-10.1); CREATININE FOR GFR 2.18 MG/DL (0.70-1.30); GLOMERULAR FILTRATION RATE 33.1 (>56); POTASSIUM SERUM 4.4 MEQ/L (3.5-5.1); TOTAL PROTEIN 7.9 GM/DL (6.4-8.2)
== END ==
LOC: M LAB 17:16
PROVIDERS: ATTEND Surgery
DX: R53.83 Other fatigue (principal); R06.02 Shortness of breath

== ENCOUNTER → 2018-08-15 | Outpatient (REF) | payer BC ==
[2018-08-15 19:03] LABS: C REACTIVE PROTEIN QUANTITATIV < 0.30 MG/DL (0.00-0.30); IRON (FE) 70 UG/DL (65-175); PERCENT SATURATION 24.7 % (19.7-50.0); TOTAL IRON BINDING CAPACITY 283 UG/DL (250-450)
[2018-08-15 19:09] LABS: VITAMIN B12 LEVEL 446 PG/ML (247-911)
== END ==
LOC: M LAB REF 16:51
PROVIDERS: ATTEND Internal Medicine
DX: K51.50 Left sided colitis without complications (principal); D50.0 Iron deficiency anemia secondary to blood loss (chronic)

== ENCOUNTER → 2019-03-12 | Outpatient (CLI) | payer BC ==
[~2019-03-12] MED LIST changes: +CIPR-249 PO; +FERR325T82 PO; -IRON325T7 PO; +LOPE1CAP5 PO; -METR-201 PO; +METR-265 PO; +PANT40TA3
--- NOTE | 2019-03-12 15:09 | REP ---
Right lower extremity Duplex Doppler venous ultrasound: Real time compression and duplex Doppler interrogation of the right lower extremity deep venous system is performed. The right common femoral, superficial femoral and popliteal veins are fully compressible with transducer pressure and demonstrate normal spontaneous and phasic flow, without evidence of deep venous thrombosis. Impression: No evidence of deep venous thrombosis of the right lower extremity femoral popliteal venous system. Electronically Signed by Saji Driver MD 03/12/2019 03:02 P
== END ==
LOC: M RAD 14:03
PROVIDERS: ATTEND Registered Nurse
DX: M79.661 Pain in right lower leg (principal); R60.0 Localized edema

== ENCOUNTER → 2019-11-21 | Outpatient (REF) | payer BC ==
[2019-11-21 14:35] LABS: PERCENT SATURATION 42.6 % (19.7-50.0)
[2019-11-21 14:36] LABS: FOLATE 22.4 NG/ML
== END ==
LOC: M LAB REF 12:10
PROVIDERS: ATTEND Internal Medicine
DX: K51.912 Ulcerative colitis, unspecified with intestinal obstruction (principal); D50.0 Iron deficiency anemia secondary to blood loss (chronic)

== ENCOUNTER → 2021-08-11 | Outpatient (REF) | payer BC ==
[~2021-08-11] MED LIST changes: +AMLO1TAB24 PO; -AMLO5TAB6 PO; -ASPI81TA85 PO; +ASPI81TA86 PO; -DICY20TA11 PO; +DICY20TA20 PO; -DOXY100C; +DOXY100C3; +GABA-282 PO; -GABA-843 PO; +PANT40TA29; -PANT40TA3
== END ==
LOC: M LAB REF 10:09
PROVIDERS: ATTEND Internal Medicine
DX: H53.481 Generalized contraction of visual field, right eye (principal)

== ENCOUNTER → 2021-11-02 | Outpatient (CLI) | payer BC | LOC: M WHC 09:50 | PROVIDERS: ATTEND Internal Medicine | DX: H53.129 Transient visual loss, unspecified eye (principal) ==

== ENCOUNTER → 2021-11-02 | Outpatient (CLI) | payer BC ==
[~2021-11-02] MED LIST changes: +PROHANCE 279.3MG/ML 15ML VIAL ONE
== END ==
LOC: M PLAIMG 08:22
PROVIDERS: ATTEND Internal Medicine
DX: H53.129 Transient visual loss, unspecified eye (principal); J32.0 Chronic maxillary sinusitis; J32.2 Chronic ethmoidal sinusitis
CPT/HCPCS: 70553; A9576

== ENCOUNTER → 2022-03-04 | Outpatient (CLI) | payer BC ==
[~2022-03-04] MED LIST changes: -PROHANCE 279.3MG/ML 15ML VIAL ONE
== END ==
LOC: M SOG 09:21
PROVIDERS: ATTEND Orthopaedic Surgery
DX: M79.632 Pain in left forearm (principal); M25.522 Pain in left elbow

== ENCOUNTER → 2022-03-16 | Outpatient (CLI) | payer BC | LOC: M RAD 06:58 | PROVIDERS: ATTEND Orthopaedic Surgery | DX: M79.632 Pain in left forearm (principal); R22.32 Localized swelling, mass and lump, left upper limb ==

== ENCOUNTER → 2022-03-19 | Outpatient (CLI) | payer BC ==
[2022-03-19 16:46] LABS: BLOOD UREA NITROGEN 16 MG/DL (7-18); CALCIUM LEVEL 8.8 MG/DL (8.8-10.2); CARBON DIOXIDE LEVEL 29 MEQ/L (21-32); CHLORIDE LEVEL 106 MEQ/L (98-107); CREATININE FOR GFR 1.07 MG/DL (0.70-1.30); GLOMERULAR FILTRATION RATE > 60.0 (>49); GLUCOSE, FASTING 87 MG/DL (70-100); POTASSIUM SERUM 4.3 MEQ/L (3.5-5.1); SODIUM LEVEL 137 MEQ/L (136-145)
== END ==
LOC: M LAB 14:51
PROVIDERS: ATTEND Orthopaedic Surgery
DX: R22.32 Localized swelling, mass and lump, left upper limb (principal); M79.632 Pain in left forearm

== ENCOUNTER → 2022-03-31 | Outpatient (REF) | payer BC ==
[2022-03-31 14:10] LABS: C REACTIVE PROTEIN QUANTITATIV < 0.30 MG/DL (0.00-0.30); RHEUMATOID FACTOR QUANT < 10.0 IU/ML (<15.0)
[2022-04-02 23:07] LABS: CYCLIC CITRULLINATED PEPTIDE 4 units (0-19)
== END ==
LOC: M LAB REF 12:19
PROVIDERS: ATTEND Internal Medicine
DX: M25.50 Pain in unspecified joint (principal)

== ENCOUNTER → 2022-04-02 | Outpatient (CLI) | payer BC | LOC: M PLARAD 12:40 | PROVIDERS: ATTEND Orthopaedic Surgery | DX: M79.632 Pain in left forearm (principal); R22.32 Localized swelling, mass and lump, left upper limb; M25.532 Pain in left wrist; M85.632 Other cyst of bone, left forearm ==

== ENCOUNTER → 2023-10-07 | Outpatient (CLI) | payer BC | LOC: M PLARAD 09:48 | PROVIDERS: ATTEND Internal Medicine | DX: G52.0 Disorders of olfactory nerve (principal); H47.093 Other disorders of optic nerve, not elsewhere classified, bilateral; J32.2 Chronic ethmoidal sinusitis; J32.0 Chronic maxillary sinusitis ==

== ENCOUNTER → 2023-10-24 | Outpatient (CLI) | payer BC ==
[2023-10-24 16:45] LABS: HEMATOCRIT 39.5 % (42.0-52.0); HEMOGLOBIN 13.3 g/dl (13.5-17.5); MEAN CORPUSCULAR HEMOGLOBIN 29.7 pg (27.0-33.0); MEAN CORPUSCULAR HGB CONC 33.7 g/dl (32.0-36.5); MEAN CORPUSCULAR VOLUME 88.2 fl (80.0-96.0); PLATELET COUNT, AUTOMATED 234 10^3/uL (150-450); RED BLOOD COUNT 4.48 10^6/uL (4.30-6.10); WHITE BLOOD COUNT 4.6 10^3/uL (4.0-10.0)
[2023-10-24 17:07] LABS: ALBUMIN 3.7 G/DL (3.2-5.2); ALKALINE PHOSPHATASE 78 U/L (46-116); ALT/SGPT 28 U/L (7.0-40); AST/SGOT 17 U/L (<34); BILIRUBIN,TOTAL 0.7 MG/DL (0.3-1.2); BLOOD UREA NITROGEN 19 MG/DL (9-23); CALCIUM LEVEL 8.8 MG/DL (8.3-10.6); CARBON DIOXIDE LEVEL 27 MMOL/L (20-31); CHLORIDE LEVEL 106 MMOL/L (98-107); CREATININE FOR GFR 1.19 MG/DL (0.70-1.30); GLOMERULAR FILTRATION RATE > 60.0 (>49); GLUCOSE, FASTING 82 MG/DL (74-106); MAGNESIUM LEVEL 2.1 MG/DL (1.8-2.4); POTASSIUM SERUM 3.8 MMOL/L (3.5-5.1); SODIUM LEVEL 138 MMOL/L (136-145); TOTAL PROTEIN 6.2 G/DL (5.7-8.2)
[2023-10-24 17:10] LABS: THYROID STIMULATING HORMONE 2.982 uIU/ML (0.55-4.78)
== END ==
LOC: M LAB 16:20
PROVIDERS: ATTEND Internal Medicine
DX: I11.0 Hypertensive heart disease with heart failure (principal); I50.32 Chronic diastolic (congestive) heart failure; R13.10 Dysphagia, unspecified

== ENCOUNTER → 2023-11-22 | Outpatient (CLI) | payer BC | LOC: M PLAIMG 13:32 | PROVIDERS: ATTEND Internal Medicine | DX: R06.00 Dyspnea, unspecified (principal); I27.20 Pulmonary hypertension, unspecified; I08.3 Combined rheumatic disorders of mitral, aortic and tricuspid valves ==

== ENCOUNTER → 2024-05-27 | Outpatient (REF) | payer OTHER ==
[~2024-05-27] MED LIST changes: +GABA-1172 PO; -GABA-282 PO
== END ==
LOC: M LAB REF 18:15
PROVIDERS: ATTEND Registered Nurse
DX: J06.9 Acute upper respiratory infection, unspecified (principal)

== ENCOUNTER → 2024-05-27 | Outpatient (CLI) | payer OTHER | LOC: M LAB 15:35 → M RAD 15:35 | PROVIDERS: ATTEND Registered Nurse | DX: J06.9 Acute upper respiratory infection, unspecified (principal); J18.9 Pneumonia, unspecified organism ==

== ENCOUNTER 2025-02-17 12:55 | Emergency (ER) | payer OTHER ==
[~2025-02-17] VITALS: Ht 170.2 cm; Wt 73.2 kg
[~2025-02-17 12:55] MED LIST changes: -CLOT10TR PO; +CLOT10TR11 PO
[2025-02-17 13:01] VITALS: TEMP 97.9
[2025-02-17] MEDS ORDERED: IBUP200C25 PO (13:44)
[2025-02-17] MEDS ORDERED: ACET-716 PO (13:44)
[2025-02-17] MEDS: MORPHINE 4 MG/ML 1 ML VIAL IV ONE (15:32)
[2025-02-17 15:42] LABS: BASO # 0.0 10^3/uL (0.0-0.2); BASO % 0.3 % (0.0-1.0); EOS # 0.0 10^3/uL (0.0-0.5); EOS % 0.5 % (0.0-3.0); LYMPH # 1.2 10^3/uL (1.5-5.0); LYMPH % 15.4 % (24.0-44.0); MONO # 0.5 10^3/uL (0.0-0.8); MONO % 5.9 % (2.0-8.0); NEUTROPHILS # 6.1 10^3/uL (1.5-8.5); NEUTROPHILS % 77.8 % (36.0-66.0); PLATELET COUNT, AUTOMATED 249 10^3/uL (150-450)
[2025-02-17] MEDS: HYDROMORPHONE HCL 0.5 MG/0.5 ML SYRINGE IV ONE (16:08)
[2025-02-17 16:10] LABS: ALT/SGPT 26.0 U/L (7.0-40); AST/SGOT 27.0 U/L (<34); CALCIUM LEVEL 9.0 MG/DL (8.3-10.6); CARBON DIOXIDE LEVEL 25.0 MMOL/L (20-31); CHLORIDE LEVEL 103.0 MMOL/L (98-107); CREATININE FOR GFR 1.08 MG/DL (0.70-1.30); GLOMERULAR FILTRATION RATE 75.7 (>49); POTASSIUM SERUM 3.8 MMOL/L (3.5-5.1); SODIUM LEVEL 139.0 MMOL/L (136-145)
[2025-02-17] MEDS ORDERED: MIDAZOLAM INJ 2 MG/2 ML VIAL As Ordered ONE (16:55)
[2025-02-17] MEDS: MIDAZOLAM INJ 2 MG/2 ML VIAL IV STA (17:03)
[2025-02-17] MEDS ORDERED: PERC5TAB12 PO (18:22)
[2025-02-17 18:30] VITALS: BP 165/98; O2SAT 98
== END 2025-02-17 18:50 | disposition home or self-care (01) ==
LOC: M ED 12:55
DX: M54.17 Radiculopathy, lumbosacral region (principal); M85.88 Other specified disorders of bone density and structure, other site; D64.9 Anemia, unspecified; I27.0 Primary pulmonary hypertension; Z87.19 Personal history of other diseases of the digestive system; Z86.73 Personal history of transient ischemic attack (TIA), and cerebral infarction without residual deficits; Z79.899 Other long term (current) drug therapy; Z88.0 Allergy status to penicillin
CPT/HCPCS: 72131; 72148; 80048; 80076; 83690; 85025; 93041; 96374; 96375; 99284; J1171; J2250

== ENCOUNTER 2025-02-19 09:36 | Inpatient (IN) | payer OTHER ==
[~2025-02-19] VITALS: Ht 170.2 cm; Wt 74.1 kg
[2025-02-19] MEDS: SENNA 8.6 MG TAB PO SCH
[~2025-02-19 09:36] MED LIST changes: +ACET-716 PO; +IBUP200C25 PO; +PERC5TAB12 PO
[2025-02-19] MEDS ORDERED: VERA40TA PO (10:37)
[2025-02-19] MEDS ORDERED: OLME20TA50 PO (10:37)
[2025-02-19] MEDS ORDERED: ATOR1TAB21 PO (10:37)
[2025-02-19] MEDS ORDERED: PRES10CA2 PO (10:37)
[2025-02-19] MEDS ORDERED: HYDR12.510 PO (10:37)
[2025-02-19 10:38] LABS: PLATELET COUNT, AUTOMATED 255 10^3/uL (150-450)
[2025-02-19 10:54] LABS: APPEARANCE, URINE CLEAR (CLEAR); BACTERIA, URINE AUTO NEGATIVE (NEGATIVE); BILIRUBIN, URINE AUTO NEGATIVE (NEGATIVE); BLOOD, URINE BLOOD 1+ (NEGATIVE); GLUCOSE, URINE (UA) AUTO NEGATIVE (NEGATIVE); KETONE, URINE AUTO TRACE mg/dL (NEGATIVE); LEUKOCYTE ESTERASE, URINE AUTO NEGATIVE (NEGATIVE); MUCUS, URINE SMALL (NEGATIVE); NITRITE, URINE AUTO NEGATIVE (NEGATIVE); PROTEIN, URINE AUTO NEGATIVE (NEGATIVE); RBC, URINE AUTO 1 /HPF (0-3); SPECIFIC GRAVITY URINE AUTO 1.018 (1.002-1.035); SQUAMOUS EPITHELIAL CELL UR AU 0 /HPF (0-6); UROBILINOGEN, URINE AUTO 0.2 mg/dL (0.0-2.0); WBC, URINE AUTO 1 /HPF (0-3)
[2025-02-19 10:55] LABS: INR 0.89
[2025-02-19 11:00] LABS: CALCIUM LEVEL 9.0 MG/DL (8.3-10.6); CARBON DIOXIDE LEVEL 29.0 MMOL/L (20-31); CHLORIDE LEVEL 104.0 MMOL/L (98-107); CREATININE FOR GFR 1.16 MG/DL (0.70-1.30); GLOMERULAR FILTRATION RATE 69.5 (>49); POTASSIUM SERUM 3.4 MMOL/L (3.5-5.1); SODIUM LEVEL 139.0 MMOL/L (136-145)
[2025-02-19] MEDS ORDERED: LIDOCAINE W/EPINEPHrine 1% 20 ML VIAL As Ordered ONE (14:18)
[2025-02-19] MEDS: ceFAZolin SODIUM 2 GM in DEXTROSE 5% (D5W) ADV/MINI-BAG 50 ML IV ONE (15:32)
[2025-02-19] MEDS: methylPREDNISolone SUSP 40 MG/ML 1 ML VIAL As Ordered ONE (15:45)
[2025-02-19] MEDS: DESMOPRESSIN ACETATE IV STA (16:01)
[2025-02-19] MEDS: NS IV STA (16:01)
[2025-02-19] MEDS: THROMBIN 20,000 UNITS KIT As Ordered ONE (18:41)
[2025-02-19] MEDS ORDERED: ONDANSETRON 4MG 2ML VIAL IV PRN (23:20)
[2025-02-19] MEDS ORDERED: HYDROMORPHONE HCL 0.5 MG/0.5 ML SYRINGE IV PRN (23:20)
[2025-02-19] MEDS ORDERED: METOPROLOL 5 MG/5 ML VIAL IV PRN (23:20)
[2025-02-19] MEDS: LR 1,000 ML IV SCH (23:20)
[2025-02-19 23:53] LABS: PLATELET COUNT, AUTOMATED 215 10^3/uL (150-450)
[2025-02-20] VITALS (33 sets, daily range): BP systolic 118–167; BP diastolic 71–97; TEMP 97.1–98.3; O2SAT 91–97
[2025-02-20] MEDS: NS (Normal Saline) 0.9% 1,000 ML IV SCH (00:01)
[2025-02-20] MEDS: ACETAMINOPHEN 325 MG TAB PO SCH (00:03)
[2025-02-20 00:31] LABS: CALCIUM LEVEL 7.9 MG/DL (8.3-10.6); CARBON DIOXIDE LEVEL 26.0 MMOL/L (20-31); CHLORIDE LEVEL 103.0 MMOL/L (98-107); CREATININE FOR GFR 1.15 MG/DL (0.70-1.30); GLOMERULAR FILTRATION RATE 70.2 (>49); POTASSIUM SERUM 3.6 MMOL/L (3.5-5.1); SODIUM LEVEL 139.0 MMOL/L (136-145)
[2025-02-20 04:32] LABS: PLATELET COUNT, AUTOMATED 213 10^3/uL (150-450)
[2025-02-20 04:57] LABS: CALCIUM LEVEL 7.7 MG/DL (8.3-10.6); CARBON DIOXIDE LEVEL 28.0 MMOL/L (20-31); CHLORIDE LEVEL 104.0 MMOL/L (98-107); CREATININE FOR GFR 1.11 MG/DL (0.70-1.30); GLOMERULAR FILTRATION RATE 73.2 (>49); POTASSIUM SERUM 3.8 MMOL/L (3.5-5.1); SODIUM LEVEL 141.0 MMOL/L (136-145)
[2025-02-20] MEDS: ceFAZolin SODIUM 2 GM in DEXTROSE 5% (D5W) ADV/MINI-BAG 50 ML IV SCH (06:11)
[2025-02-20] MEDS: DOCUSATE SODIUM 100 MG CAPSULE PO SCH (09:00)
[2025-02-20] MEDS: SIMETHICONE 80MG CHEW TAB PO PRN (09:37)
[2025-02-20] MEDS ORDERED: HOME MED LIST COMPLETE! XX SCH (15:00)
[2025-02-20] MEDS ORDERED: ASPI325T59 PO (15:00)
[2025-02-20] MEDS ORDERED: NON-FORMULARY 1 EA EA PO PRN (19:00)
[2025-02-20] MEDS: HEPARIN SOD 5000 UNITS/ML 1 ML VIAL/SYRINGE SQ SCH (20:25)
[2025-02-20] MEDS: GABAPENTIN 100 MG CAP PO SCH (20:25)
[2025-02-20] MEDS: CYCLOBENZAPRINE 10 MG TABLET PO PRN (20:25)
[2025-02-20] MEDS: RAMELTEON 8 MG TAB PO PRN (21:31)
[2025-02-20] MEDS: SIMETHICONE 80MG CHEW TAB PO ONE (23:47)
[2025-02-21] VITALS (9 sets, daily range): BP systolic 138–180; BP diastolic 72–100; TEMP 97.2–98.9; O2SAT 95–97
[2025-02-21] MEDS: MORPHINE 4 MG/ML 1 ML VIAL IV ONE (04:42)
[2025-02-21 10:48] LABS: PLATELET COUNT, AUTOMATED 186 10^3/uL (150-450)
[2025-02-21 11:10] LABS: CALCIUM LEVEL 7.8 MG/DL (8.3-10.6); CARBON DIOXIDE LEVEL 28 MMOL/L (20-31); CHLORIDE LEVEL 105 MMOL/L (98-107); CREATININE FOR GFR 0.88 MG/DL (0.70-1.30); GLOMERULAR FILTRATION RATE > 90.0 (>49); POTASSIUM SERUM 4.1 MMOL/L (3.5-5.1); SODIUM LEVEL 139 MMOL/L (136-145)
[2025-02-21] MEDS: CALCIUM CARBONATE 500 MG CHEW U/D PO SCH (13:25)
[2025-02-21] MEDS ORDERED: CALCIUM CARBONATE 500 MG CHEW U/D PO SCH (16:00)
[2025-02-21] MEDS: hydrALAZINE 20 MG/ML 1 ML VIAL IV PRN (16:46)
[2025-02-21] MEDS: ONDANSETRON 4MG 2ML VIAL IV PRN (18:26)
[2025-02-21 18:49] LABS: BASO # 0.0 10^3/uL (0.0-0.2); BASO % 0.1 % (0.0-1.0); EOS # 0.0 10^3/uL (0.0-0.5); EOS % 0.0 % (0.0-3.0); LYMPH # 0.3 10^3/uL (1.5-5.0); LYMPH % 3.7 % (24.0-44.0); MONO # 0.6 10^3/uL (0.0-0.8); MONO % 6.6 % (2.0-8.0); NEUTROPHILS # 8.2 10^3/uL (1.5-8.5); NEUTROPHILS % 89.3 % (36.0-66.0); PLATELET COUNT, AUTOMATED 208 10^3/uL (150-450)
[2025-02-21 19:10] LABS: ALT/SGPT 24 U/L (7.0-40); AST/SGOT 31 U/L (<34); CALCIUM LEVEL 8.2 MG/DL (8.3-10.6); CARBON DIOXIDE LEVEL 22 MMOL/L (20-31); CHLORIDE LEVEL 105 MMOL/L (98-107); CREATININE FOR GFR 0.77 MG/DL (0.70-1.30); GLOMERULAR FILTRATION RATE > 90.0 (>49); POTASSIUM SERUM 3.6 MMOL/L (3.5-5.1); SODIUM LEVEL 137 MMOL/L (136-145)
[2025-02-21] MEDS: PANTOPRAZOLE 40MG VIAL IV SCH (20:24)
[2025-02-21] MEDS: PREPARATION H SUPP (HEMORRHOID) PR SCH (20:27)
[2025-02-22] VITALS (7 sets, daily range): BP systolic 138–168; BP diastolic 64–112; TEMP 97.2–98; O2SAT 95–97
[2025-02-22] MEDS: diphenhydrAMINE 50 MG/ML VIAL IV ONE (00:47)
[2025-02-22 06:39] LABS: PLATELET COUNT, AUTOMATED 251 10^3/uL (150-450)
[2025-02-22 07:03] LABS: CALCIUM LEVEL 8.3 MG/DL (8.3-10.6); CARBON DIOXIDE LEVEL 23 MMOL/L (20-31); CHLORIDE LEVEL 105 MMOL/L (98-107); CREATININE FOR GFR 0.84 MG/DL (0.70-1.30); GLOMERULAR FILTRATION RATE > 90.0 (>49); POTASSIUM SERUM 3.9 MMOL/L (3.5-5.1); SODIUM LEVEL 139 MMOL/L (136-145)
[2025-02-22] MEDS: LR 1,000 ML IV SCH (18:22)
[2025-02-23] VITALS (8 sets, daily range): BP systolic 146–172; BP diastolic 72–98; TEMP 97–99.7; O2SAT 93–96
[2025-02-24] VITALS (7 sets, daily range): BP systolic 130–168; BP diastolic 82–100; TEMP 97.6–98.5; O2SAT 94–97
[2025-02-24] MEDS: FAMOTIDINE IV BAG 20 MG in IV 1 EA IV SCH
[2025-02-24 05:38] LABS: PLATELET COUNT, AUTOMATED 229 10^3/uL (150-450)
[2025-02-24 06:00] LABS: CALCIUM LEVEL 8.4 MG/DL (8.3-10.6); CARBON DIOXIDE LEVEL 28 MMOL/L (20-31); CHLORIDE LEVEL 106 MMOL/L (98-107); CREATININE FOR GFR 0.80 MG/DL (0.70-1.30); GLOMERULAR FILTRATION RATE > 90.0 (>49); MAGNESIUM LEVEL 1.9 MG/DL (1.8-2.4); POTASSIUM SERUM 3.3 MMOL/L (3.5-5.1); SODIUM LEVEL 142 MMOL/L (136-145)
[2025-02-25 03:44] VITALS: BP 144/94; TEMP 97.6; O2SAT 95
[2025-02-25 07:39] LABS: PLATELET COUNT, AUTOMATED 221 10^3/uL (150-450)
[2025-02-25 08:03] LABS: CALCIUM LEVEL 8.3 MG/DL (8.3-10.6); CARBON DIOXIDE LEVEL 26 MMOL/L (20-31); CHLORIDE LEVEL 106 MMOL/L (98-107); CREATININE FOR GFR 0.83 MG/DL (0.70-1.30); GLOMERULAR FILTRATION RATE > 90.0 (>49); MAGNESIUM LEVEL 1.8 MG/DL (1.8-2.4); POTASSIUM SERUM 3.4 MMOL/L (3.5-5.1); SODIUM LEVEL 142 MMOL/L (136-145)
[2025-02-25 08:05] VITALS: BP 161/96; TEMP 98.7; O2SAT 98
[2025-02-25] MEDS ORDERED: GABA-1171 PO (12:23)
== END 2025-02-25 14:15 | disposition home or self-care (01) | DRG 310 ==
LOC: M SDC 09:36 → M ICU 23:16 → M PCU 02-20 12:54
PROVIDERS: ADMIT Internal Medicine Critical Care Medicine; ATTEND Family Medicine
PROC: 0SB20ZZ Excision of Lumbar Vertebral Disc, Open Approach (ICD-10-PCS; principal; 2025-02-20)
DX: M51.26 Other intervertebral disc displacement, lumbar region (principal); K56.7 Ileus, unspecified; Z88.0 Allergy status to penicillin; Z79.899 Other long term (current) drug therapy; G43.909 Migraine, unspecified, not intractable, without status migrainosus; Z86.73 Personal history of transient ischemic attack (TIA), and cerebral infarction without residual deficits; M21.372 Foot drop, left foot; K91.89 Other postprocedural complications and disorders of digestive system

== ENCOUNTER → 2025-03-08 | Outpatient (CLI) | payer OTHER ==
[~2025-03-08] MED LIST changes: +ASPI325T59 PO; +GABA-1171 PO; +HYDR12.510 PO; +OLME20TA50 PO; +PRES10CA2 PO; +VERA40TA PO
== END ==
LOC: M WHC 09:46
PROVIDERS: ATTEND Internal Medicine
DX: M79.602 Pain in left arm (principal); R22.32 Localized swelling, mass and lump, left upper limb; I82.612 Acute embolism and thrombosis of superficial veins of left upper extremity; I82.B12 Acute embolism and thrombosis of left subclavian vein

== ENCOUNTER → 2025-03-08 | Outpatient (REF) | payer OTHER | LOC: M LAB REF 12:24 | PROVIDERS: ATTEND Internal Medicine | DX: Z86.73 Personal history of transient ischemic attack (TIA), and cerebral infarction without residual deficits (principal) ==